=== PATIENT | female | born 1955 | race Caucasian/White ===

== ENCOUNTER → 2016-11-23 | Outpatient (CLI) | payer BC ==
[~2016-11-23] MED LIST: (NONE)300 MCG PO; ACETAMINOPHEN650 M1 PO; ALER-CAP25 M1 PO; ASPIRIN PO; BAYER ASPIRIN325 M1 PO; BAYER WOMEN'S1 EACH PO; BIOTIN; BIOTIN PO; CALCIUM; CALCIUM PO; CALCIUM W/VITAM1 TA5 PO; CHOLINE; DILAUDID PO; FAMOTIDINE PO; FAMVIR500 M1 PO; INOSITOL; L-LYSINE; L-LYSINE500 M2 PO; LEVAQUIN750 M1 PO; MAGNESIUM OXID500 MG PO; MAGNESIUM500 MG PO; MENOPAUSE RELI1 EACH PO; MENOPAUSE SUPPORT; METHIONINE; METHIONINE PO; MULTI VITAMIN1 EACH PO; NIACIN PO; NIACIN500 M2 PO; NO MEDICATIONS; ONE A DAY VITAMIN; ONE DAILY1 TA1 PO; PANTOTHENIC AC500 MG PO; PANTOTHENIC ACID; PB8 PO; PHENERGAN25 MG PO; VIT D PO; VIT E PO; VITAMIN C PO; VITAMIN C1000 M2 PO; VITAMIN E400 UNI2 PO; VITAMIN E400 UNI4 PO; [UNRECOGNIZED DRUG - OTHER]; [UNRECOGNIZED DRUG - OTHER]; [UNRECOGNIZED DRUG - OTHER]; [UNRECOGNIZED DRUG - OTHER] PO; [UNRECOGNIZED DRUG - OTHER] PO; [UNRECOGNIZED DRUG - OTHER] PO
--- NOTE | ~2016-11-23 | CT2 ---
[facility] A Service of [facility] RADIOLOGY TEXT RESULTS PATIENT: MEENA BRAR LOCATION: [facility] : 53 UNIT #: [id number] AGE: [address]: Kaiden Fuentes MD SEX: F ORDER DR: [id number] [facility] [address] [place], [place] [address] [id number] O MR#: [id number] [facility] #: [id number] NAME: MEENA BRAR : 1955 SEX: F STUDY DATE/TIME: 11/23/2016 14:46 UNIT: [facility] ROOM: STUDY DESCRIPTION: CT Abd and Pelv W Cont Attending Physician: Kaiden Fuentes M.D. Referring Physician: Kaiden Fuentes M.D. Ordering Physician: Kaiden Fuentes M.D. Primary Care Physician: Kaiden Fuentes M.D. MEDICAL IMAGING REPORT This report is preliminary unless electronic signature is present EXAM CT of the abdomen and pelvis with contrast. HISTORY Lower abdominal pain, mostly on the left for 6 months. Patient has a history of acute pancreatitis. TECHNIQUE Axial images were obtained from the diaphragm to the symphysis pubis following the administration of oral and intravenous contrast material. This CT exam was performed with one or more of the following radiation dose reduction techniques: automatic exposure control, adjustment of mA and/or kV according to patient size, and iterative reconstruction. FINDINGS Images through the lung bases demonstrate some bibasilar scarring. Similar findings were present in April 2014 but may have progressed slightly when compared to that exam. There is a small hiatal hernia. Proximal small bowel is within normal limits as is the spleen. Pancreas is mildly atrophic but I do not see any pancreatic ductal dilatation. This patient has an ill-defined area of low attenuation seen within the neck of the pancreas. Clinical significance is uncertain. It is incompletely evaluated on this study. Further evaluation with pancreas protocol CT or MRI is suggested. Adrenal glands appear unremarkable. I do think the patient probably has diffuse hepatic steatosis but no focal hepatic lesions are seen. Parapelvic cysts are seen on the left. Right kidney I think is unremarkable. No free fluid or adenopathy is seen within the abdomen. The appendix is visualized and is within normal limits. Uterus is surgically absent. Urinary bladder appears unremarkable. This patient does have some colonic diverticulosis [facility]. [facility] A Service of [facility] RADIOLOGY TEXT RESULTS PATIENT: MEENA BRAR LOCATION: [facility] : 53 UNIT #: [id number] AGE: [address]: Kaiden Fuentes MD SEX: F ORDER DR: but I do not see any convincing evidence of diverticulitis on the current exam. There is atherosclerotic involvement of the abdominal aorta. No free fluid or adenopathy is seen within the pelvis. Review of bony windows does not demonstrate any aggressive osseous abnormalities. IMPRESSION 1. Colonic diverticulosis without convincing evidence of diverticulitis. 2. The patient does have some mild pancreatic atrophy. There is an ill-defined area of decreased attenuation seen within the neck of the pancreas measuring up to about 9 mm in size. Clinical significance is uncertain. Patient has had prior bouts of pancreatitis. I do not see any pancreatic ductal dilatation but I would suggest further evaluation with pancreas protocol CT or MRI. 2. Diffuse hepatic steatosis. 3. Parapelvic left renal cyst. Please see the body of the report for any other additional incidental findings. Dictated by... Tova Galeana M.D. THIS IS AN ELECTRONICALLY VERIFIED REPORT Tova Galeana M.D. at 11/26/2016 5:09 PM AFF/pcl TD: 11/23/2016 22:42 JOB #: [id number] MEDICAL IMAGING REPORT Page 1 of 1 COPY
[2016-11-23 15:21] LABS: POC - CREATININE 0.89 mg/dL (0.44-1.03); POC - GFR >60.0 mL/min (>60)
== END | disposition home or self-care (01) ==
LOC: CCAT 13:11
PROVIDERS: Internal Medicine
DX: R10.30 Lower abdominal pain, unspecified (principal); K57.30 Diverticulosis of large intestine without perforation or abscess without bleeding; K86.89 Other specified diseases of pancreas; K76.0 Fatty (change of) liver, not elsewhere classified; N28.1 Cyst of kidney, acquired; J98.4 Other disorders of lung; K44.9 Diaphragmatic hernia without obstruction or gangrene; I70.0 Atherosclerosis of aorta; Z90.710 Acquired absence of both cervix and uterus
CPT/HCPCS: 74177; 82565; Q9967

== ENCOUNTER → 2016-12-04 | Outpatient (CLI) | payer BC ==
--- NOTE | ~2016-12-04 | MR2 ---
[facility] A Service of [facility] RADIOLOGY TEXT RESULTS PATIENT: MEENA BRAR LOCATION: [facility] : 53 UNIT #: [id number] AGE: [address]: Kaiden Fuentes MD SEX: F ORDER DR: [id number] [facility] [address] [place], [place] [address] [id number] O MR#: [id number] Acc #: [id number] NAME: MEENA BRAR : 1955 SEX: F STUDY DATE/TIME: 12/04/2016 18:18 UNIT: [facility] ROOM: STUDY DESCRIPTION: MR Abdomen WWo Cont Attending Physician: Kaiden Fuentes M.D. Referring Physician: Kaiden Fuentes M.D. Ordering Physician: Kaiden Fuentes M.D. Primary Care Physician: Kaiden Fuentes M.D. MRI CENTER REPORT This report is preliminary unless electronic signature is present. EXAM MRI abdomen. INDICATIONS Pancreatic mass. Pancreatic lesion. Initial MRI evaluation. Abnormal CT scan of the abdomen. TECHNIQUE Multiplanar MRI of the abdomen with and without contrast (17 mL MultiHance IV contrast). COMPARISON CT abdomen and pelvis dated 11/13/2016 and 05/14/2014. FINDINGS There is diffuse background hepatic steatosis. Mild focal fatty sparing is noted adjacent to the gallbladder fossa. No hepatic mass. Hepatic vasculature is patent. The gallbladder is not distended. No gallstones. There is mild generalized atrophy of the pancreas. Pancreatic duct is normal in caliber. No discrete enhancing mass or lesions identified within the pancreatic parenchyma. The area of decreased attenuation described on the prior CT scan is not confirmed on MRI. The spleen and adrenal glands are within normal limits. There is a benign cyst in the superior pole left kidney. The bowel is not dilated. There are some colonic diverticula. No enlarged retroperitoneal or mesenteric lymph nodes. IMPRESSION 1. No focal pancreatic mass or lesion. There is no MRI correlate for [facility] A Service of [facility] RADIOLOGY TEXT RESULTS PATIENT: MEENA BRAR [id number] 53 UNIT #: [id number] AGE: [address]: Kaiden Fuentes MD SEX: F ORDER DR: the area of low attenuation described on the recent CT scan. 2. Generalized atrophy of the pancreas consistent with a history of chronic pancreatitis. 3. Diffuse hepatic steatosis. Dictated by... Valdez Mccann M.D. THIS IS AN ELECTRONICALLY VERIFIED REPORT Valdez Mccann M.D. at 12/06/2016 11:37 AM CELSO/spenesr TD: 12/06/2016 11:23 JOB #: [id number] MRI CENTER REPORT Page 1 of 1 COPY
== END | disposition home or self-care (01) ==
LOC: CMRI 17:01
DX: K86.89 Other specified diseases of pancreas (principal); R93.5 Abnormal findings on diagnostic imaging of other abdominal regions, including retroperitoneum; K76.0 Fatty (change of) liver, not elsewhere classified
CPT/HCPCS: 74183; A9577